=== PATIENT | male | born 1970 | race Caucasian/White ===

== ENCOUNTER 2016-11-25 14:11 | Emergency (ER) | payer OTHER ==
[~2016-11-25] VITALS: Ht 170.2 cm; Wt 104.5 kg
[~2016-11-25 14:11] MED LIST: ALBU17AE27 IH; LISI10TA7 PO; SIMV20TA6 PO
[2016-11-25] MEDS ORDERED: KETOROLAC TROMETHAMINE 60 MG/2 ML VIAL IM ONE (16:15)
[2016-11-25] MEDS ORDERED: METHOCARBAMOL 500 MG TABLET PO ONE (16:15)
[2016-11-25 17:20] VITALS: BP 125/90
== END 2016-11-25 17:26 | disposition home or self-care (01) ==
LOC: EMS 14:13
DX: S16.1XXA Strain of muscle, fascia and tendon at neck level, initial encounter (principal); I10 Essential (primary) hypertension; E78.00 Pure hypercholesterolemia, unspecified; J45.909 Unspecified asthma, uncomplicated; Z88.8 Allergy status to other drugs, medicaments and biological substances; X58.XXXA Exposure to other specified factors, initial encounter; Y93.89 Activity, other specified; Y92.89 Other specified places as the place of occurrence of the external cause; Y99.8 Other external cause status
CPT/HCPCS: 96372; 99283; J1885

== ENCOUNTER 2017-02-22 07:11 | Emergency (ER) | payer OTHER ==
[~2017-02-22] VITALS: Ht 170.2 cm; Wt 101.8 kg
[~2017-02-22 07:11] MED LIST changes: -SIMV20TA6 PO
[2017-02-22] MEDS ORDERED: ATOR10TA84 PO (07:15)
[2017-02-22] MEDS ORDERED: METHOCARBAMOL 500 MG TABLET PO ONE (08:15)
[2017-02-22] MEDS ORDERED: KETOROLAC TROMETHAMINE 60 MG/2 ML VIAL IM ONE (08:15)
[2017-02-22] MEDS ORDERED: MORPHINE SULFATE 4 MG/ML SYRINGE IM ONE (09:00)
[2017-02-22 10:01] VITALS: BP 144/69
== END 2017-02-22 10:41 | disposition home or self-care (01) ==
LOC: EMS 07:11
DX: S16.1XXA Strain of muscle, fascia and tendon at neck level, initial encounter (principal); E78.00 Pure hypercholesterolemia, unspecified; I10 Essential (primary) hypertension; J45.909 Unspecified asthma, uncomplicated; Z88.1 Allergy status to other antibiotic agents; X58.XXXA Exposure to other specified factors, initial encounter; Y93.89 Activity, other specified; Y92.89 Other specified places as the place of occurrence of the external cause; Y99.9 Unspecified external cause status
CPT/HCPCS: 72125; 96372; 99284; J1885; J2270

== ENCOUNTER 2018-01-20 23:13 | Emergency (ER) | payer BC, OTHER ==
[~2018-01-20] VITALS: Ht 170.2 cm; Wt 100.0 kg
[~2018-01-20 23:13] MED LIST changes: -ALBU17AE27 IH; +ATOR10TA84 PO
[2018-01-21] MEDS ORDERED: ALBU8HFA IH (00:22)
[2018-01-21] MEDS ORDERED: ASPI81TA39 PO (00:22)
[2018-01-21] MEDS ORDERED: HYDROCODONE/ACETAMINOPHEN 5-325 MG TABLET PO ONE (03:30)
[2018-01-21 04:09] VITALS: BP 131/85
[2018-01-21] MEDS ORDERED: IBUPROFEN 800 MG TABLET PO ONE (04:15)
== END 2018-01-21 04:30 | disposition home or self-care (01) ==
LOC: EMS 23:13
DX: S89.91XA Unspecified injury of right lower leg, initial encounter (principal); M79.644 Pain in right finger(s); J45.909 Unspecified asthma, uncomplicated; E78.00 Pure hypercholesterolemia, unspecified; I10 Essential (primary) hypertension; Z90.49 Acquired absence of other specified parts of digestive tract; Z88.8 Allergy status to other drugs, medicaments and biological substances; Z79.82 Long term (current) use of aspirin; Z79.899 Other long term (current) drug therapy; W18.39XA Other fall on same level, initial encounter; Y93.89 Activity, other specified; Y92.89 Other specified places as the place of occurrence of the external cause; Y99.8 Other external cause status
CPT/HCPCS: 29505; 99285